=== PATIENT | female | born 1935 | race Caucasian/White ===

== ENCOUNTER 2017-04-17 03:21 | Emergency (ER) ==
[2017-04-17 03:41] VITALS: BP 180/78; TEMP 97.7; BMI 33.6
--- NOTE | 2017-04-17 03:52 | ED.PDOC ---
General ED Provider: Dr. ANUEL TYLER Chief Complaint: Back Pain Stated Complaint: having rt side belly pain, had h/o kidney stone, thinks its the same type of pain. Time Seen by Physician: 03:50 Mode of Arrival: Walk-In Information Source: Patient Primary Care Provider: PRATIBHA QUIROZ Nursing and Triage Documentation Reviewed and Agree: Yes GI Complaint Exam - Abdominal Pain Complaint/Exam Onset: Gradual Symptoms Are: Still present Initial Severity: Moderate Current Severity: Moderate Location of Pain: RLQ Radiates To: Reports: Flank Character: Reports: Aching, Throbbing Aggravating: Reports: Movement, Food Alleviating: Reports: None Associated Signs and Symptoms: Reports: Nausea. Denies: Diaphoresis, Fever, Cough, Chest pain, Dizziness, Back pain, Constipation, Blood in stool, Dysuria, Urinary frequency, Decreased urine output, Decreased appetite, Vaginal bleeding , Vaginal discharge, Vomiting, Diarrhea, Sore throat, Decreased activity Related History: Reports: Similar episode AAA Risk Factors: Reports: None Cardiac Risk Factors: Reports: None Ectopic Risk Factors: Reports: None Ovarian Torsion Risk Factors: Reports: None Surgical Obstruction Risk Factors: Reports: None Related Surgical History: Reports: None Patient Rh Status: Unknown Abdominal Findings: Absent: Pulsatile mass, Abdominal distention, Unequal femoral pulses, Rebound tenderness Differential Diagnoses: Diverticulitis, Renal Colic Review of Systems - Review Of Systems Constitutional: Reports: Malaise, Weakness Eyes: Reports: No symptoms Ears, Nose, Mouth, Throat: Reports: No symptoms Respiratory: Reports: No symptoms Cardiac: Reports: No symptoms GI: Reports: Abdominal pain : Reports: No symptoms Musculoskeletal: Reports: No symptoms Skin: Reports: No symptoms Neurological: Reports: No symptoms Endocrine: Reports: No symptoms Hematologic/Lymphatic: Reports: No symptoms All Other Systems: Reviewed and Negative Past Medical History - Past Medical History Previously Healthy: Yes Endocrine: Reports: Dyslipidemia Cardiovascular: Reports: Hypertension Respiratory: Reports: None Hematological: Reports: None Gastrointestinal: Reports: GERD Genitourinary: Reports: None Neuro/Psych: Reports: None Musculoskeletal: Reports: None Cancer: Reports: None Last Menstrual Period: UNKNOWN - Surgical History General Surgical History: Reports: None - Family History Family History: Reports: None - Social History Smoking Status: Former smoker Hx Substance Use: No Alcohol Screening: None - Immunizations Tetanus Shot up to Date: (UNKNOWN) Physical Exam - Physical Exam Appearance: Ill-appearing Ill-appearing: Moderate Pain Distress: Moderate Eyes: GERTRUDIS, EOMI, Conjunctiva clear ENT: Ears normal, Nose normal, Oropharynx normal Respiratory: Airway patent, Breath sounds clear, Breath sounds equal, Respirations nonlabored Cardiovascular: RRR, Pulses normal, No rub, No murmur GI/: Tender Musculoskeletal: Normal strength, ROM intact, No edema, No calf tenderness Skin: Warm, Dry, Normal color Neurological: Sensation intact, Motor intact, Reflexes intact, Cranial nerves intact, Alert, Oriented Psychiatric: Affect appropriate, Mood appropriate Interpretation - Radiology Interpretation Radiology Results: Positive Exam Interpreted: CT Scan Critical Care Note - Critical Care Note Total Time (mins): 0 Course - Course Hematology/Chemistry: 04/17/17 04:06 04/17/17 04:06 Orders, Labs, Meds: Lab Review 04/17/17 04/17/17 03:49 04:06 WBC 6.79 RBC 3.93 L Hgb 12.0 Hct 34.4 L MCV 87.5 MCH 30.5 MCHC 34.9 RDW Coeff of Crystal 12.3 Plt Count 114 L Immature Gran % (Auto) 0.3 Neut % (Auto) 69.3 Lymph % (Auto) 21.5 [place] % (Auto) 7.5 Eos % (Auto) 0.7 Baso % (Auto) 0.7 Immature Gran # (Auto) 0.0 Neut # 4.7 Lymph # 1.5 [place] # 0.5 Eos # 0.1 Baso # 0.1 Sodium 139 Potassium 3.6 Chloride 105 Carbon Dioxide 21 L Anion Gap 16.6 BUN 18 Creatinine 0.86 Estimated GFR (MDRD) 63.00 BUN/Creatinine Ratio 20.93 Glucose 141 H Calcium 9.1 Total Bilirubin 0.39 AST 22 ALT 27 Alkaline Phosphatase 83 Total Protein 6.7 Albumin 3.6 Globulin 3.1 Albumin/Globulin Ratio 1.16 Urine Color Yellow Urine Clarity Cloudy Urine pH 5.0 Ur Specific [place] >=1.030 Urine Protein Negative Urine Glucose (UA) Negative Urine Ketones Negative Urine Blood 3+ Urine Nitrite Negative Urine Bilirubin Negative Urine Urobilinogen 0.2 Ur Leukocyte Esterase Trace Urine Microscopic RBC 50-100 Ur Squamous Epith Cells 10-20 Urine Bacteria Trace Orders Category Date Time Status CBC W/ AUTO DIFF Stat LAB 04/17/17 04:06 Completed COMPREHENSIVE METABOLIC PANEL Stat LAB 04/17/17 04:06 Completed URINALYSIS C & S IF INDICATED Stat LAB 04/17/17 03:49 Completed Hydromorphone HCl/Pf [Dilaudid 2 mg/ml Syringe] MEDS 04/17/17 03:49 Discontinued 2 mg IM ONCE STA Ondansetron HCl/Pf [Zofran 4 mg/2 ml] MEDS 04/17/17 03:49 Discontinued 4 mg IM ONCE STA Tamsulosin HCl [Flomax] MEDS 04/17/17 04:45 Discontinued 0.4 mg PO ONCE STA CT ABDOMEN/PELVIS WO CONTRAST Stat RADS 04/17/17 03:49 Completed Medications Discontinued Medications Generic Name Dose Route Start Last Admin Trade Name Freq PRN Reason Stop Dose Admin Hydromorphone HCl 2 mg 04/17/17 03:49 04/17/17 04:21 Dilaudid 2 Mg/Ml Syringe IM 04/17/17 03:50 2 mg ONCE STA Administration Ondansetron HCl 4 mg 04/17/17 03:49 04/17/17 04:21 Zofran 4 Mg/2 Ml IM 04/17/17 03:50 4 mg ONCE STA Administration Tamsulosin HCl 0.4 mg 04/17/17 04:45 04/17/17 04:50 Flomax PO 04/17/17 04:46 0.4 mg ONCE STA Administration Vital Signs: Temp Pulse Resp BP Pulse Ox 04/17/17 03:23 97.7 F 72 20 180/78 H 99 Departure - Departure Time of Disposition: 04:40 Disposition: HOME SELF-CARE Discharge Problem: Hydronephrosis Qualifiers: Hydronephrosis type: with renal calculous obstruction Qualifier Code: (N13.2) Hydronephrosis with renal and ureteral calculous obstruction Instructions: Hydronephrosis (ED) Condition: Stable Pt referred to PMD for follow-up: Yes Additional Instructions: Nba Aguilar WILL SEE HER IN CLINIC TODAY ]iNCREASE HYDRATION Prescriptions: Hydrocodone Bit/Acetaminophen [[place] 7.5-325] 1 each PO Q8H #14 tablet Allergies/Adverse Reactions: Allergies No Known Drug Allergies Adverse Reaction (Verified 04/17/17 03:31) Home Medications: Ambulatory Orders Aspirin [Aspirin EC] 325 mg PO DAILYWM 04/17/17 Bisoprolol Fumarate/Hctz [Bisoprolol-Hctz 2.5-6.25 mg Tb] 1 each PO DAILY Famciclovir 500 mg PO BID 04/17/17 Hydrocodone Bit/Acetaminophen [[place] 7.5-325] 1 each PO Q8H #14 tablet 04/17/17 Lisinopril 20 mg PO DAILY 04/17/17 Multivit-Min/FA/Lycopene/Lut [Centrum Silver Tablet] 1 tab PO DAILY 04/17/17 Pantoprazole Sodium 40 mg PO DAILY 04/17/17 Simvastatin 40 mg PO DAILY 04/17/17 Disposition Discussed With: Patient, Family
[2017-04-17 04:08] LABS: BASOPHILS # (AUTO) 0.1 K/uL (0-0.2); BASOPHILS % (AUTO) 0.7 % (0.0-3.0); EOSINOPHILS # (AUTO) 0.1 K/ul (0.0-0.7); EOSINOPHILS % (AUTO) 0.7 % (0.0-7.0); HEMATOCRIT 34.4 % (37.0-47.0); IMMATURE GRANULOCYTE % (AUTO) 0.3 % (0.0-5.0); LYMPHOCYTES # (AUTO) 1.5 K/uL (0.60-3.4); LYMPHOCYTES % (AUTO) 21.5 (10.0-50.0); MEAN CORPUSCULAR HEMOGLOBIN 30.5 pg (27.0-31.0); MEAN CORPUSCULAR HGB CONC 34.9 (31.8-35.4); MEAN CORPUSCULAR VOLUME 87.5 fl (81.0-99.0); MONOCYTES # (AUTO) 0.5 K/uL (0.4-2.0); MONOCYTES % (AUTO) 7.5 (0-10); NEUTROPHILS # (AUTO) 4.7 K/ul (2.0-6.9); NEUTROPHILS % (AUTO) 69.3; PLATELET COUNT 114 10^3/uL (140-440); RED BLOOD COUNT 3.93 10^6/ul (4.20-5.40); WHITE BLOOD COUNT 6.79 K/ul (4.6-10.2)
[2017-04-17 04:16] LABS: BILIRUBIN,URINE Negative (NEGATIVE); KETONES,URINE Negative (NEGATIVE); LEUKOCYTE ESTERASE ,URINE Trace (NEGATIVE); NITRITE,URINE Negative (NEGATIVE); PROTEIN,URINE Negative (NEGATIVE); URINE, BLOOD 3+ (NEGATIVE)
--- NOTE | 2017-04-17 04:20 | CT ---
Exam: CT of the abdomen and pelvis without contrast History: Flank pain Technique: [address] of the abdomen and pelvis without intravascular contrast FINDINGS: The lung bases are clear. No significant liver abnormality. The adrenals, pancreas and sp latosha are unremarkable. The stomach and hiatus are unremarkable.The gallbladder appears normal. Mode rate right hydronephrosis and hydroureter. There is a 6-mm calculus of the ureterovesicular junctio n. There is a 2.4 cm cyst in the left kidney. Normal caliber bowel loops. The appendix is normal. Atherosclerotic calcification of the aorta without aneurysm. Right ureterovesicular junction calculus. Pelvic genitourinary structures unremarkable otherwise. No inflammation of the pelvic fat. Normal pelvic bowel loops. No acute findings of the skeleton. Impression: 1. Moderate right hydronephrosis and hydroureter secondary to a 6 mm calculus at the ureterovesicul ar junction.
[2017-04-17 04:21] LABS: ADD URINE MICROSCOPIC YES
[2017-04-17] MEDS: DILAUDID 2 MG/ML SYRINGE IM STA (04:21)
[2017-04-17] MEDS: ZOFRAN 4 MG/2 ML IM STA (04:21)
[2017-04-17 04:22] LABS: BACTERIA,URINE TRACE (NOT PRESENT)
[2017-04-17 04:27] LABS: ALBUMIN 3.6 g/dL (3.4-5.0); ALBUMIN/GLOBULIN RATIO 1.16; ANION GAP 16.6; BILIRUBIN,TOTAL 0.39 mg/dL (0.00-1.20); BUN/CREATININE RATIO 20.93; CALCIUM 9.1 mg/dL (8.2-10.2); CREATININE 0.86 mg/dL (0.60-1.30); POTASSIUM 3.6 mmol/L (3.5-5.10); TOTAL PROTEIN 6.7 g/dL (5.8-8.1)
[2017-04-17] MEDS: FLOMAX PO STA (04:50)
== END 2017-04-17 05:15 | disposition home or self-care (01) ==
LOC: ED 03:21
DX: N13.2 Hydronephrosis with renal and ureteral calculous obstruction (principal); E78.5 Hyperlipidemia, unspecified; I10 Essential (primary) hypertension; K21.9 Gastro-esophageal reflux disease without esophagitis; Z87.442 Personal history of urinary calculi; Z79.899 Other long term (current) drug therapy
CPT/HCPCS: 36415; 80053; 81001; 85025; 96372; 99283

== ENCOUNTER 2024-05-14 18:25 | Observation (INO) ==
--- NOTE | 2024-05-14 18:45 | ED.PDOC ---
General ED Provider: Dr. ARPIT GUTIERREZ MD Chief Complaint: Dizziness Stated Complaint: Patient is an 88-year-old female that reported to the emergency department for nausea and vomiting. Patient stated that approximately 45 minutes prior to arrival she started to get dizzy. She stated that she started to have nausea with some vomiting when she got to the emergency department. Patient stated that she did not lose consciousness or have a syncopal episode. Patient stated that she is currently on chemotherapy for colon cancer and recently had a chemotherapy treatment 2 days ago. Patient stated that she was told to take Lomotil for her GI issues. Patient stated that since that time she has had diarrhea. Patient stated that she has had a couple glasses of water today. Patient stated that at lunch she went to [employer] with her family and had a little cup of ice cream. Patient stated that she has not been outside the country recently. Patient denied any fever, cough, or any other upper respiratory type symptoms. Patient denies any shortness of breath, chest pain, abdominal pain, or any other acute symptoms not currently mentioned in the HPI. Patient did state that she felt dehydrated as she has not been able to drink fluids recently. GCS 15. A/O x 3. Time Seen by Provider: 05/14/24 18:29 Mode of Arrival: Walk-In Information Source: Patient Exam Limitations: No limitations Primary Care Provider: PRATIBHA QUIROZ MD Nursing and Triage Documentation Reviewed and Agree: Yes Does Patient Take Opioids?: No Is Patient Opioid Naive?: No What is Opioid Naive?: *Opioid Naive implies the patient is not already taking opioids or not chronically receiving opioids on a daily basis. *PRN dosing is not "usually" associated with tolerance. *Patients are at higher risk of over-sedation and aspiration. Is Patient Opioid Tolerant?: No What is Opioid Tolerant?: *Opioid Tolerance implies less than the expected response to an opioid. *Acquired tolerance is defined by the patient taking 60mg of oral morphine daily (or equianalgesic dose of another opioid) for 1 week or more. *Often associated with chronic pain. *May take more than usual dose to achieve desired pain control. Review of Systems Review Of Systems Constitutional: Reports No symptoms Eyes: Reports No symptoms Ears, Nose, Mouth, Throat: Reports No symptoms Respiratory: Reports No symptoms Cardiac: Reports Other (Dizziness) GI: Reports Nausea and Vomiting : Reports No symptoms Musculoskeletal: Reports No symptoms Skin: Reports No symptoms Neurological: Reports No symptoms Endocrine: Reports No symptoms Hematologic/Lymphatic: Reports No symptoms All Other Systems: Reviewed and Negative [facility] Medical History Abnormal laboratory test R89.9 - Unspecified abnormal finding in specimens from other organs, systems and tissues (ICD-10) Encounter for annual wellness visit (AWV) in Medicare patient Z00.00 - Encounter for general adult medical examination without abnormal findings (ICD-10) Hx of gastric ulcer Z87.11 - Personal history of peptic ulcer disease (ICD-10) Herpes zoster left temporal B02.9 - Zoster without complications (ICD-10) Kidney stone Dr. Garrett N20.0 - Calculus of kidney (ICD-10) Helicobacter pylori (H. pylori) A04.8 - Other specified bacterial intestinal infections (ICD-10) Family History FATHER Cardiac abnormality Social History Smoking and tobacco status: Never smoker Second hand smoke exposure: No Smoking risk assessment performed: No Alcohol intake: never Substance use type: does not use Anita/bahai: [facility] Special anita needs: No Agree to transfusion: Yes Adopted: No Caregiver/support person: No Foster care: No Household members: spouse Housing: house Marital status: M Lives independently: Yes Daycare: no daycare Number of children: 3 Financial difficulty paying for basics: not very hard service: No USP: No Current occupational status: retired History of recent travel: No Do you think of yourself as: straight/heterosexual Current gender identity: female Seatbelt use: always Helmet use: No Drives intoxicated or rides with intoxicated team cdl driver: No Water heater temperature set < 120 degrees: Yes Working smoke detector in home: Yes Fire extinguisher in home: Yes Carbon monoxide detector in home: Yes Female Reproductive History Menstrual Hx Hysterectomy: No Hx Tubal Ligation: No Physical Exam Physical Exam Appearance: Reports No pain distress and Well-nourished Ill-appearing: Mild Pain Distress: None Eyes: Reports GERTRUDIS, EOMI and Conjunctiva clear ENT: Reports Ears normal, Nose normal and Dry mucosa (Dry oral cavity.) Neck: Supple Respiratory: Reports Airway patent, Breath sounds clear, Breath sounds equal and Respirations nonlabored Cardiovascular: Reports RRR, Pulses normal, No rub and No murmur GI/: Reports Soft, Nontender, No masses, Bowel sounds normal and No Organomegaly Musculoskeletal: Reports Normal strength, ROM intact, No edema and No calf tenderness Skin: Reports Warm, Dry and Normal color Neurological: Reports Sensation intact, Motor intact, Reflexes intact, Cranial nerves intact, Alert and Oriented Psychiatric: Reports Affect appropriate and Mood appropriate Interpretation EKG Interpretation EKG Interpretation By: ED Physician Time of EKG #1: 18:56 Rate: Normal Rhythm: Sinus Ectopy: None Cliff: Left ST Segment: Normal Interpretation: Normal sinus rhythm with a left bundle branch block. Ventricular rate 70 Course Course 05/14/24 18:57 05/14/24 18:57 Orders, Labs, Meds: Lab Review 05/14/24 18:57 WBC 5.08 RBC 3.63 L Hgb 11.0 L Hct 34.0 L MCV 93.7 MCH 30.3 MCHC 32.4 RDW Coeff of Crystal 15.0 H Plt Count 82 L Immature Gran % (Auto) 0.2 Neut % (Auto) 42.7 Lymph % (Auto) 45.5 [place] % (Auto) 9.8 Eos % (Auto) 1.2 Baso % (Auto) 0.6 Neut # (Auto) 2.2 Lymph # (Auto) 2.3 [place] # (Auto) 0.5 Eos # (Auto) 0.1 Baso # (Auto) 0.0 Immature Gran # (Auto) 0.0 Sodium 138.5 Potassium 2.90 L Chloride 107.9 H Carbon Dioxide 18.0 L Anion Gap 15.50 BUN 16.1 Creatinine 0.82 Estimated GFR (MDRD) 66.00 BUN/Creatinine Ratio 19.63 Glucose 117.0 H Lactic Acid 3.59 H Calcium 9.19 Total Bilirubin 0.46 AST 53.6 H ALT 31.8 Alkaline Phosphatase 184.2 H Troponin I < 0.012 Total Protein 7.26 Albumin 4.37 Globulin 2.89 Albumin/Globulin Ratio 1.51 Influ A Molecular Assay Negative by naat Influ B Molecular Assay Negative by naat SARS CoV-2 RNA Rapid ORLIN Negative Orders Category Date Time Status EKG-(ED ONLY) Stat CARDIO 05/14/24 18:35 Completed NPO REMINDER: IMAGING ONCE CARE 05/14/24 19:42 Active ED LICENSED ELECTRICIAN APPLIED .ONCE EMERGENCY 05/14/24 18:35 Active CBC W/ AUTO DIFF Stat LAB 05/14/24 18:57 Completed COMPREHENSIVE METABOLIC PANEL Stat LAB 05/14/24 18:57 Completed FLU A/B MOLECULAR Stat LAB 05/14/24 18:57 Completed LACTIC ACID Stat LAB 05/14/24 18:57 Completed SARS COV-2 RNA RAPID ORLIN Stat LAB 05/14/24 18:57 Completed TROPONIN I Stat LAB 05/14/24 18:57 Completed URINALYSIS C & S IF INDICATED Stat LAB 05/14/24 18:35 Uncollected Ondansetron HCl/Pf [Zofran 4 mg/2 ml] Meds 05/14/24 18:37 Discontinued 4 mg IVP ONCE STA Potassium Chloride [Potassium Chloride 20 Meq/100 ml Meds 05/14/24 19:34 Active Premix] 20 meq in 100 ml IV ONCE Sodium Chloride 0.9% [Sodium Chloride] 1,000 ml Meds 05/14/24 18:35 Discontinued IV BOLUS Sodium Chloride 0.9% [Sodium Chloride] 1,000 ml Meds 05/14/24 19:37 Active IV BOLUS CHEST, 1V AP ONLY Stat RADS 05/14/24 18:[address] ABDOMEN/PELVIS W CONTRAST Stat RADS 05/14/24 19:41 Completed Medications Generic Name Dose Route Start Last Admin Trade Name Freq PRN Reason Stop Dose Admin Potassium Chloride 20 meq in 100 mls @ 50 mls/hr 05/14/24 19:34 Potassium Chloride 20 Meq/100 Ml Premix IV 05/14/24 21:33 ONCE ONE Sodium Chloride 1,000 mls @ 1,000 mls/hr 05/14/24 19:37 Sodium Chloride IV 05/14/24 20:36 BOLUS ONE Discontinued Medications Generic Name Dose Route Start Last Admin Trade Name Freq PRN Reason Stop Dose Admin Sodium Chloride 1,000 mls @ 1,000 mls/hr 05/14/24 18:35 05/14/24 19:59 Sodium Chloride IV 05/14/24 19:34 Infused BOLUS ONE Infusion Ondansetron HCl 4 mg 05/14/24 18:37 05/14/24 18:59 Ondansetron Hcl/Pf 4 Mg/2 Ml Sdv IVP 05/14/24 18:38 4 mg ONCE STA Administration Vital Signs: Temp Pulse Resp BP Pulse Ox 05/14/24 18:34 98.0 F 75 20 175/67 H 100 Physician Progress Note: Patient is an 88-year-old female that reported to the emergency department for nausea and vomiting. Patient stated that approximately 45 minutes prior to arrival she started to get dizzy. She stated that she started to have nausea with some vomiting when she got to the emergency department. Patient stated that she did not lose consciousness or have a syncopal episode. Patient stated that she is currently on chemotherapy for colon cancer and recently had a chemotherapy treatment 2 days ago. Patient stated that she was told to take Lomotil for her GI issues. Patient stated that since that time she has had diarrhea. Patient stated that she has had a couple glasses of water today. Patient stated that at lunch she went to [place] with her family and had a little cup of ice cream. Patient stated that she has not been outside the country recently. Patient denied any fever, cough, or any other upper respiratory type symptoms. Patient denies any shortness of breath, chest pain, abdominal pain, or any other acute symptoms not currently mentioned in the HPI. Patient did state that she felt dehydrated as she has not been able to drink fluids recently. GCS 15. A/O x 3. -Will give the patient IV normal saline 1 L bolus for dehydration. -Will give the patient IV Zofran 4 mg for nausea and vomiting. -Will order an EKG, chest x-ray, and baseline labs for patient's dizziness and nausea vomiting. -EKG shows normal sinus rhythm with a left bundle branch block. Ventricular rate of 70 bpm no acute diagnostic ST elevations. -Chest x-ray was interpreted by the ER physician and showed no acute cardiopulmonary disease. -Patient's lactic acid is 3.45. Will continue IV fluids. Patient's potassium is 2.9. Will give IV potassium chloride 20 mEq. -Will talk to hospitalist about admission for intractable nausea and vomiting and hypokalemia. -(194) spoke to hospitalist at [facility] about patient's current condition and history of colorectal cancer with current intractable nausea and vomiting. Hospitalist asked me to order a CT of the abdomen and pelvis with contrast prior to admission. Will order CT abdomen and pelvis with contrast. -CT of the abdomen and pelvis showed1. No inflammatory process, bowel or urinary obstruction. 2. Prior right colectomy 3. No metastatic lymphadenopathy or solid organ metastasis. -(2027) Spoke to hospitalist at [facility] who has agreed to admit the pt for inpatient services for intractable nausea and vomiting and hypokalemia. Discharge Plan Discharge Patient Disposition: PLACED OBSERVATION Discharge Problem: Dehydration, Intractable nausea and vomiting, Dizziness, Essential hypertension, Acute hypokalemia Colon cancer Qualifiers: Colon location: unspecified part of colon Qualified Code(s): C18.9 - Malignant neoplasm of colon, unspecified Did you review [place] [employer] CLERK SUPERVISOR for ALL controlled substances?: Not Applicable ED Provider: ARPIT GUTIERREZ Condition: Stable [place] Coma Scale [place] Coma Scale Eye Opening Response: Spontaneously Best Verbal Response: Oriented to Time, Place, and Person Best Motor Resposne: Obeys Commands [place] Coma Scale Score Total: 15 Response Scores: Best Response = 15 Comatose Client = 8 or Less Totally Unresponsive = 3
[2024-05-14] MEDS: SODIUM CHLORIDE 1,000 ML IV ONE ×2 (18:59→20:43)
[2024-05-14] MEDS: ZOFRAN 4 MG/2 ML IVP STA (18:59)
[2024-05-14 19:10] LABS: BASOPHILS % (AUTO) 0.6 % (0.0-3.0); EOSINOPHILS # (AUTO) 0.1 K/ul (0.0-0.7); EOSINOPHILS % (AUTO) 1.2 % (0.0-7.0); IMMATURE GRANULOCYTE % (AUTO) 0.2 % (0.0-5.0); LYMPHOCYTES # (AUTO) 2.3 K/uL (0.60-3.4); LYMPHOCYTES % (AUTO) 45.5 (10.0-50.0); MEAN CORPUSCULAR HEMOGLOBIN 30.3 pg (27.0-31.0); MEAN CORPUSCULAR HGB CONC 32.4 (31.8-35.4); MEAN CORPUSCULAR VOLUME 93.7 fl (81.0-99.0); MONOCYTES # (AUTO) 0.5 K/uL (0.4-2.0); MONOCYTES % (AUTO) 9.8 (0-10); NEUTROPHILS # (AUTO) 2.2 K/ul (2.0-6.9); NEUTROPHILS % (AUTO) 42.7 % (42.2-75.2); PLATELET COUNT 82 10^3/uL (140-440); RED BLOOD COUNT 3.63 10^6/ul (4.20-5.40); WHITE BLOOD COUNT 5.08 K/ul (4.6-10.2)
[2024-05-14 19:16] LABS: ALANINE AMINOTRANSFERASE 31.8 U/L (0-35); ALBUMIN 4.37 g/dL (3.5-5.0); ALKALINE PHOSPHATASE 184.2 U/L (53-141); ASPARTATE AMINO TRANSFERASE 53.6 U/L (14-36); BILIRUBIN,TOTAL 0.46 mg/dL (0.2-1.3); BLOOD UREA NITROGEN 16.1 mg/dL (7-17); CALCIUM 9.19 mg/dL (8.4-10.2); CHLORIDE 107.9 mmol/L (98-107); CREATININE 0.82 mg/dL (0.60-1.30); SODIUM 138.5 mmol/L (134.5-145); TOTAL PROTEIN 7.26 g/dL (6.3-8.2)
[2024-05-14 19:24] LABS: MOLECULAR FLU A NEGATIVE BY NAAT (NEGATIVE); MOLECULAR FLU B NEGATIVE BY NAAT (NEGATIVE); SARS COV-2 RNA RAPID NAAT NEGATIVE (NEGATIVE)
[2024-05-14 19:27] LABS: TROPONIN I < 0.012 ng/ml (0.0000-0.120)
--- NOTE | 2024-05-14 19:35 | DI ---
EXAM: CHEST ONE-VIEW HISTORY: Dizziness COMPARISON: None FINDINGS: A right internal jugular venous access port catheter is in place. A large calcified subca rinal lymph node is noted. There are calcified granulomas in the left lung. The heart size is promin ent. The pulmonary vasculature is normal. No consolidating infiltrates are detected. No pneumothor aces or pleural effusions. IMPRESSION: 1. No acute cardiopulmonary disease. .
--- NOTE | 2024-05-14 20:25 | CT ---
EXAM: CT OF THE ABDOMEN AND PELVIS WITH CONTRAST History: Nausea, vomiting, colon carcinoma Technique: [address] of the abdomen and pelvis with contrast FINDINGS: The lung bases are clear. No significant liver abnormality. A subcapsular cyst in the le ft hepatic lobe. The adrenals, pancreas and spleen are unremarkable. The stomach and hiatus are unr emarkable.The gallbladder appears normal. Bilateral simple renal cysts. No hydronephrosis, inflamma tion or hydroureter. The appendix is surgically absent with prior right colectomy. The gallbladder appears normal. Bowel loops demonstrate normal caliber. No inflamatory change seen in the mesentery or retroperitoneum. Atherosclerotic calcification of the aorta without aneurysm. The Pelvic genitourinary structures appear normal. A few sigmoid colonic diverticula. No inflammato ry change in the pelvic fat. No acute abnormality of the abdominal or pelvic skeleton. Impression: 1. No inflammatory process, bowel or urinary obstruction. 2. Prior right colectomy 3. No metastatic lymphadenopathy or solid organ metastasis. All CT scans are performed using dose optimization techniques as appropriate to the performed exam an d include at least one of the following: Automated exposure control, adjustment of the mA and/or kV according t o size, and the use of iterative reconstruction technique.
[2024-05-14] MEDS: POTASSIUM CHLORIDE 20 MEQ/100 ML PREMIX 20 MEQ/100 ML BAG IV ONE ×2 (20:44→23:41)
[2024-05-14] MEDS ORDERED: ZOFRAN 4 MG/2 ML IVP PRN (20:49)
[2024-05-14] MEDS ORDERED: REGLAN IVP PRN (20:49)
[2024-05-14] MEDS ORDERED: TYLENOL PO PRN (20:49)
[2024-05-14 21:14] LABS: SARS COV-2 RNA RAPID NAAT NEGATIVE (NEGATIVE)
[2024-05-15 00:34] VITALS: BMI 29.0
[2024-05-15 02:34] VITALS: RESP 18
[2024-05-15 05:46] LABS: BASOPHILS % (AUTO) 0.2 % (0.0-3.0); EOSINOPHILS % (AUTO) 0.6 % (0.0-7.0); HEMATOCRIT 30.5 % (37.0-47.0); HEMOGLOBIN 9.8 g/dl (12.0-16.0); IMMATURE GRANULOCYTE % (AUTO) 0.4 % (0.0-5.0); LYMPHOCYTES # (AUTO) 1.7 K/uL (0.60-3.4); LYMPHOCYTES % (AUTO) 31.5 (10.0-50.0); MEAN CORPUSCULAR HEMOGLOBIN 30.3 pg (27.0-31.0); MEAN CORPUSCULAR HGB CONC 32.1 (31.8-35.4); MEAN CORPUSCULAR VOLUME 94.4 fl (81.0-99.0); MONOCYTES # (AUTO) 0.4 K/uL (0.4-2.0); MONOCYTES % (AUTO) 8.4 (0-10); NEUTROPHILS # (AUTO) 3.1 K/ul (2.0-6.9); NEUTROPHILS % (AUTO) 58.9 % (42.2-75.2); PLATELET COUNT 58 10^3/uL (140-440); RDW COEFFICIENT OF VARIATION 15.1 % (11.6-14.8); RED BLOOD COUNT 3.23 10^6/ul (4.20-5.40); WHITE BLOOD COUNT 5.24 K/ul (4.6-10.2)
[2024-05-15 05:52] LABS: ALANINE AMINOTRANSFERASE 27.4 U/L (0-35); ALBUMIN 3.34 g/dL (3.5-5.0); ALKALINE PHOSPHATASE 121.8 U/L (53-141); ASPARTATE AMINO TRANSFERASE 38.8 U/L (14-36); BILIRUBIN,TOTAL 0.39 mg/dL (0.2-1.3); BLOOD UREA NITROGEN 11.7 mg/dL (7-17); CALCIUM 8.39 mg/dL (8.4-10.2); CHLORIDE 110.6 mmol/L (98-107); CREATININE 0.72 mg/dL (0.60-1.30); GLUCOSE 96.6 mg/dL (74-106); POTASSIUM 4.06 mmol/L (3.5-5.1); SODIUM 139.7 mmol/L (134.5-145)
[2024-05-15 06:00] LABS: BILIRUBIN,URINE Negative (NEGATIVE); CLARITY,URINE Clear (CLEAR); COLOR,URINE Yellow (YELLOW); GLUCOSE, URINE (UA) Negative (NEGATIVE); KETONES,URINE Negative (NEGATIVE); LEUKOCYTE ESTERASE ,URINE Negative (NEGATIVE); NITRITE,URINE Negative (NEGATIVE); PH,URINE 5.5 (5-9); PROTEIN,URINE Negative (NEGATIVE); URINE, BLOOD Trace-intact (NEGATIVE); UROBILINOGEN,URINE 0.2 (0.2)
[2024-05-15 06:02] LABS: SQUAMOUS EPITHELIAL CELL,UR 0-2 (0-5); URINE RBC, MICROSCOPIC 0-2 (0-2)
[2024-05-15] MEDS: VITAMIN D PO SCH (08:51)
[2024-05-15] MEDS: FERROUS SULFATE PO SCH (08:51)
[2024-05-15] MEDS: ASPIRIN CHEWABLE PO SCH (08:51)
[2024-05-15] MEDS: ZIAC 2.5-6.25 MG PO SCH (08:51)
[2024-05-15] MEDS: PRAVACHOL PO SCH (08:51)
[2024-05-15] MEDS: ZESTRIL PO SCH (08:51)
[2024-05-15] MEDS: PROTONIX PO SCH (08:56)
[2024-05-15 10:15] VITALS: BP 151/67; PULSE 70; TEMP 98.4
--- NOTE | 2024-05-15 12:13 | PCM.SS ---
Provider Provider: KARMEN THAKKAR PA-C, [facility] Admission Date Admission Date: 05/14/24 Discharge Date Discharge Date: 05/15/24 Primary Care Physician Primary Care Physician: PRATIBHA WHITE MD Chief Complaint Reason For Visit: DEHYDRATION, HYPOKALEMIA, N/V, DIZZINESS History of Present Illness History of Present Illness: Admitted 05/14/24 21:01, this 88 year old /WHITE/F with pmhx of hypertension, hyperlipidemia, colon cancer undergoing chemo, GERD, presented to ER with cc of dizziness, n/v. Patient states she had a glass of water with her . Went to stand up and got very dizzy to the point it made it difficult to walk straight. She then vomited x3 and had an episode of diarrhea. Once she received fluids and antiemetics in the ER she felt better. CXR and ct a/p negative. Labs overall unremarkable except for potassium 2.9 and bicarb slightly low. BP mildly elevated but improved without intervention. Pt was admitted to med surg. Patient states she feels back to her baseline today, "so much better." Has not had any more episodes of dizziness, n/v/d. Has been able to tolerate a diet this morning. Orthostats negative. Has ambulated with staff in the halls without any dizziness, gait disturbances, etc. She denies chest pain, sob, weakness on one side, speech difficulties, vision changes, headache. She states that she has had inner ear issues with dizziness in the past but hadn't in a while. She feels comfortable with discharge to home today. Family at bedside. [facility] Medical History Abnormal laboratory test R89.9 - Unspecified abnormal finding in specimens from other organs, systems and tissues (ICD-10) Encounter for annual wellness visit (AWV) in Medicare patient Z00.00 - Encounter for general adult medical examination without abnormal findings (ICD-10) Hx of gastric ulcer Z87.11 - Personal history of peptic ulcer disease (ICD-10) Herpes zoster left temporal B02.9 - Zoster without complications (ICD-10) Kidney stone Dr. Garrett N20.0 - Calculus of kidney (ICD-10) Helicobacter pylori (H. pylori) A04.8 - Other specified bacterial intestinal infections (ICD-10) Family History FATHER Cardiac abnormality Social History Smoking and tobacco status: Never smoker Second hand smoke exposure: No Smoking risk assessment performed: No Alcohol intake: never Substance use type: does not use Anita/nondenominational: TAOIST Special anita needs: No Agree to transfusion: Yes Adopted: No Caregiver/support person: No Foster care: No Household members: spouse Housing: house Marital status: M Lives independently: Yes Daycare: no daycare Number of children: 3 Financial difficulty paying for basics: not very hard service: No MCFP: No Current occupational status: retired History of recent travel: No Do you think of yourself as: straight/heterosexual Current gender identity: female Seatbelt use: always Helmet use: No Drives intoxicated or rides with intoxicated local combination truck driver: No Water heater temperature set < 120 degrees: Yes Working smoke detector in home: Yes Fire extinguisher in home: Yes Carbon monoxide detector in home: Yes Medications Mecications: Medications at Discharge (Home Meds & RX) aspirin 81 mg chewable tablet 81 mg PO QDAY 11/10/22 cholecalciferol (vitamin D3) 25 mcg (1,000 unit) capsule 25 mcg PO QDAY 11/10/22 multivitamin 1 tab PO QAM 11/10/22 omega-3 fatty acids-fish oil 300 mg-500 mg capsule (Fish Oil) 1 cap PO .Daily 11/10/22 ferrous sulfate 325 mg (65 mg iron) tablet 325 mg PO BID #60 tabs 11/26/23 bisoprolol 2.5 mg-hydrochlorothiazide 6.25 mg tablet See Rx Instructions .Route .COMPLEX #90 tabs 02/05/24 lisinopril 20 mg tablet See Rx Instructions .Route .COMPLEX #90 tabs 02/05/24 pantoprazole 40 mg tablet,delayed release See Rx Instructions .Route .COMPLEX #90 tabs 02/05/24 pravastatin 40 mg tablet See Rx Instructions .Route .COMPLEX #90 tabs 02/05/24 Allergies Allergies Allergy/AdvReac Type Severity Reaction Status Date / Time No Known Drug Allergies AdvReac Unknown Verified 05/14/24 18:37 Review of Systems Constitutional: Denies Fever or Weakness Head: Reports Normocephalic and Atraumatic Eyes: Denies Blurred vision or Vision Changes Ears: Reports Other (+dizziness ) Throat: Denies Sore Throat Cardiovascular: Denies Chest pain, Chest Pressure or Edema Respiratory: Denies Cough or Shortness of air Gastrointestinal: Reports Nausea, Vomiting and Diarrhea; Denies Abdominal pain or Melena Genitourinary: Denies Dysuria or Frequency Musculoskeletal: Denies Neck Pain or Back Pain Dermatologic: Denies Rashes Neurological: Reports Dizziness; Denies Headache, Syncope, Loss of Conciousness, Weakness or Speech difficulty Physical Examination Appearance: Positive Well-appearing, Well-nourished, No Apparent Distress and Alert and Oriented x3 Head: Positive Normocephalic and Atraumatic Eyes: Positive GERTRUDIS ENT: Positive Ears Normal Neck: Positive Supple and Trachea Midline Heart: Positive RRR Respiratory: Positive Breath Sounds Clear, Bilaterally, Breath Sounds Equal and Respirations Nonlabored; Negative Crackles, Rhonchi or Wheezes GI/: Positive Soft, Nontender, Bowel sounds normal and No Distention Extremities: Negative Edema Neurological: Positive Cranial nerves intact, Motor Intact, Alert and Oriented Psychiatric: Positive Normal Judgement, Normal Insight, Affect Appropriate and Mood Appropriate Vital Signs (Last 4 Hours) Vital Signs Last 4 Hours: Vital Signs: Last 4 Hours 05/15/24 09:00 05/15/24 10:00 05/15/24 10:00 Temperature 98.4 F Temperature Source Temporal Artery Scan Pulse Rate 70 Respiratory Rate 18 Blood Pressure 151/67 H Blood Pressure Mean 95 Blood Pressure Location Left Arm Blood Pressure Position Supine O2 Sat by Pulse Oximetry 96 Oxygen Delivery Method Room Air Room Air Room Air 05/15/24 11:00 Temperature Temperature Source Pulse Rate Respiratory Rate Blood Pressure Blood Pressure Mean Blood Pressure Location Blood Pressure Position O2 Sat by Pulse Oximetry Oxygen Delivery Method Room Air Labs This Visit Labs This Visit: Labs This Visit 05/14/24 05/14/24 05/15/24 18:57 20:59 05:12 WBC 5.08 5.24 RBC 3.63 L 3.23 L Hgb 11.0 L 9.8 L Hct 34.0 L 30.5 L MCV 93.7 94.4 MCH 30.3 30.3 MCHC 32.4 32.1 RDW Coeff of Crystal 15.0 H 15.1 H Plt Count 82 L 58 L Immature Gran % (Auto) 0.2 0.4 Neut % (Auto) 42.7 58.9 Lymph % (Auto) 45.5 31.5 [place] % (Auto) 9.8 8.4 Eos % (Auto) 1.2 0.6 Baso % (Auto) 0.6 0.2 Neut # (Auto) 2.2 3.1 Lymph # (Auto) 2.3 1.7 [place] # (Auto) 0.5 0.4 Eos # (Auto) 0.1 0.0 Baso # (Auto) 0.0 0.0 Immature Gran # (Auto) 0.0 0.0 Sodium 138.5 139.7 Potassium 2.90 L 4.06 Chloride 107.9 H 110.6 H Carbon Dioxide 18.0 L 23.0 Anion Gap 15.50 10.16 BUN 16.1 11.7 Creatinine 0.82 0.72 Estimated GFR (MDRD) 66.00 76.00 BUN/Creatinine Ratio 19.63 16.25 Glucose 117.0 H 96.6 Lactic Acid 3.59 H Calcium 9.19 8.39 L Total Bilirubin 0.46 0.39 AST 53.6 H 38.8 H ALT 31.8 27.4 Alkaline Phosphatase 184.2 H 121.8 D Troponin I < 0.012 Total Protein 7.26 6.00 L Albumin 4.37 3.34 L Globulin 2.89 2.66 Albumin/Globulin Ratio 1.51 1.25 Urine Color Urine Clarity Urine pH Ur Specific [place] Urine Protein Urine Glucose (UA) Urine Ketones Urine Blood Urine Nitrite Urine Bilirubin Urine Urobilinogen Ur Leukocyte Esterase Urine Microscopic RBC Ur Squamous Epith Cells Influ A Molecular Assay Negative by naat Influ B Molecular Assay Negative by naat SARS CoV-2 RNA Rapid ORLIN Negative Negative 05/15/24 05:30 WBC RBC Hgb Hct MCV MCH MCHC RDW Coeff of [place] Plt Count Immature Gran % (Auto) Neut % (Auto) Lymph % (Auto) [place] % (Auto) Eos % (Auto) Baso % (Auto) Neut # (Auto) Lymph # (Auto) [place] # (Auto) Eos # (Auto) Baso # (Auto) Immature Gran # (Auto) Sodium Potassium Chloride Carbon Dioxide Anion Gap BUN Creatinine Estimated GFR (MDRD) BUN/Creatinine Ratio Glucose Lactic Acid Calcium Total Bilirubin AST ALT Alkaline Phosphatase Troponin I Total Protein Albumin Globulin Albumin/Globulin Ratio Urine Color Yellow Urine Clarity Clear Urine pH 5.5 Ur Specific [place] 1.010 Urine Protein Negative Urine Glucose (UA) Negative Urine Ketones Negative Urine Blood Trace-intact H Urine Nitrite Negative Urine Bilirubin Negative Urine Urobilinogen 0.2 Ur Leukocyte Esterase Negative Urine Microscopic RBC 0-2 Ur Squamous Epith Cells 0-2 Influ A Molecular Assay Influ B Molecular Assay SARS CoV-2 RNA Rapid ORLIN Imaging Imaging: EXAM: CHEST ONE-VIEW HISTORY: Dizziness COMPARISON: None FINDINGS: A right internal jugular venous access port catheter is in place. A large calcified subcarinal lymph node is noted. There are calcified granulomas in the left lung. The heart size is prominent. The pulmonary vasculature is normal. No consolidating infiltrates are detected. No pneumothoraces or pleural effusions. IMPRESSION: 1. No acute cardiopulmonary disease. EXAM: CT OF THE ABDOMEN AND PELVIS WITH CONTRAST History: Nausea, vomiting, colon carcinoma Technique: [address] of the abdomen and pelvis with contrast FINDINGS: The lung bases are clear. No significant liver abnormality. A subcapsular cyst in the left hepatic lobe. The adrenals, pancreas and spleen are unremarkable. The stomach and hiatus are unremarkable.The gallbladder appears normal. Bilateral simple renal cysts. No hydronephrosis, inflammation or hydroureter. The appendix is surgically absent with prior right colectomy. The gallbladder appears normal. Bowel loops demonstrate normal caliber. No inflamatory change seen in the mesentery or retroperitoneum. Atherosclerotic calcification of the aorta without aneurysm. The Pelvic genitourinary structures appear normal. A few sigmoid colonic diverticula. No inflammatory change in the pelvic fat. No acute abnormality of the abdominal or pelvic skeleton. Impression: 1. No inflammatory process, bowel or urinary obstruction. 2. Prior right colectomy 3. No metastatic lymphadenopathy or solid organ metastasis. Review Review Statement: I have independently reviewed and interpreted the labs/EKGs/imaging that were ordered by the ER provider. I have reviewed all outside records that are available currently in our EMR including imaging/notes/labs from previous visits. Plan Reccomendations/Plan: 1. Vertigo - Resolved. No other deficits noted. Fluids given in ER. 2. Nausea and vomiting - Zofran and reglan prn ordered. Progress diet as tolerated. 3. Hypokalemia in setting of vomiting - Replaced 4. Colon cancer - Gets chemo [id number], sees Dr. Galeana, overall going well per patient. Last chemo was 05/05/24. 5. Hypertension - Cont home meds 6. GERD - Cont home meds 7. Hyperlipidemia -Cont home meds CXR, CT a/p negative. UA negative. Trop undetectable, no changes on EKG. Patient states she feels back to her baseline today, "so much better." Has not had any more episodes of dizziness, n/v/d. Has been able to tolerate a diet this morning. Orthostats negative. Has ambulated with staff in the halls without any dizziness, gait disturbances, etc. She denies chest pain, sob, weakness on one side, speech difficulties, vision changes, headache. She states that she has had inner ear issues with dizziness in the past but hadn't in a while. States the diarrhea is not unusual for her. Potassium replaced and normal today. She feels comfortable with discharge to home today. Family at bedside. DISCHARGE DIAGNOSES: 1. Vertigo - Resolved. 2. Nausea and vomiting - Resolved 3. Hypokalemia in setting of vomiting - Resolved 4. Colon cancer undergoing chemo 5. Hypertension 6. GERD 7. Hyperlipidemia Additional Planning: Case discussed with ED Physician, Dr. Valenzuela. Advanced Care Plannin minutes spent discussing advance care planning. Admit to: Obs Discussed Plan of Care with Dr. Jason White. Review With Patient Reviewed with Patient and Family: Patient and family have been counseled on condition and care plan and have no immediate questions. I have personally discussed and reviewed the patient's visit/current labs/imaging/decision making with Dr. Jason White, my supervising attending. Total number of minutes spent with patient [ 85 ] min. More than 50% of the time spent with this patient was devoted to counseling and coordination of care. Time of Admission:05/14/24 21:01 Time of Discharge: 05/15/24 1045 Discharge Plan Discharge Discharge Orders: Discharge Patient (ONCE); Ordered 05/15/24 Ordered By: KARMEN THAKKAR Activity Restrictions/Additional Instructions: DISCHARGE TO HOME DIET: HEART HEALTHY ACTIVITY: TOLERATED, FALL PRECAUTIONS FOLLOW UP WITH YOUR PRIMARY CARE PROVIDER, DR. WHITE; SUNDAY, AT 9:40 RESUME YOUR MEDICATIONS TAKING BEFORE. PUSH FLUIDS DRINK PLENTY OF FLUIDS. Instructions: Dehydration (ED), Heart Healthy Diet (DC), Hypokalemia (DC), Diz ziness (ED) Care Plan Goals: Problem: Fluid and electrolyte imbalance Goal: Maintain fluid and electrolyte balance Instructions: Monitor I/O as needed Obtain labs related to electrolytes Problem: Fluid Volume Deficit Goal: Maintain fluid and electrolyte balance Instructions: Monitor and maintain hydration status Follow fluid and dietary restrictions Problem: Risk for falls Goal: No falls or injury Instructions: Have no throw rugs on the floor Make sure pathway is clear of all objects Use assistance devices if applicable Patient Disposition: HOME SELF-CARE Prescriptions: Continued ferrous sulfate 325 mg (65 mg iron) tablet 325 mg PO BID Qty: 60 2RF pravastatin 40 mg tablet See Rx Instructions .ROUTE .COMPLEX Qty: 90 1RF Dose Instruction: TAKE 1 TABLET EVERY DAY Rx Instructions: TAKE 1 TABLET EVERY DAY pantoprazole 40 mg tablet,delayed release (DR/EC) See Rx Instructions .ROUTE .COMPLEX Qty: 90 1RF Dose Instruction: TAKE 1 TABLET EVERY DAY Rx Instructions: TAKE 1 TABLET EVERY DAY bisoprolol-hydrochlorothiazide 2.5-6.25 mg tablet See Rx Instructions .ROUTE .COMPLEX Qty: 90 1RF Dose Instruction: TAKE 1 TABLET EVERY DAY Rx Instructions: TAKE 1 TABLET EVERY DAY lisinopril 20 mg tablet See Rx Instructions .ROUTE .COMPLEX Qty: 90 1RF Dose Instruction: TAKE 1 TABLET EVERY DAY Rx Instructions: TAKE 1 TABLET EVERY DAY aspirin 81 mg tablet,chewable 81 mg PO QDAY Fish Oil 300-500 mg capsule 1 cap PO .Daily multivitamin Tablet 1 tab PO QAM cholecalciferol (vitamin D3) 25 mcg (1,000 unit) capsule 25 mcg PO QDAY Did you review [place] TOBACCO CHECKOUT CLERK for ALL controlled substances?: Not Applicable Discussed opioids are addictive and Narcan is available by prescription or from pharmacy.: No Condition: Stable Referrals: PRATIBHA WHITE MD [Primary Care Provider] - 05/22/24 9:40 am
== END 2024-05-15 13:45 | disposition home or self-care (01) ==
LOC: MEDSURG B 18:25 → ED 18:25 → MEDSURG B 22:30
PROVIDERS: ADMIT Hospitalist; ATTEND Physician Assistant
DX: R42 Dizziness and giddiness; C18.9 Malignant neoplasm of colon, unspecified; Z20.822 Contact with and (suspected) exposure to COVID-19; Z51.81 Encounter for therapeutic drug level monitoring; E86.0 Dehydration; Z79.899 Other long term (current) drug therapy; K21.9 Gastro-esophageal reflux disease without esophagitis; I10 Essential (primary) hypertension; E87.6 Hypokalemia; E78.5 Hyperlipidemia, unspecified; R11.2 Nausea with vomiting, unspecified